=== PATIENT | female | born 1980 | race Caucasian/White ===

== ENCOUNTER 2023-07-02 19:22 | Observation (INO) ==
--- NOTE | 2023-07-02 20:13 | Emergency Department Note ---
Impression & Plan Acute hyperventilation syndrome, Hypophosphatemia, Hypokalemia, Low magnesium level, Numbness and tingling ED Provider Note NAME: NGUYỄN GARZON AGE: 42 SEX: F : 1980 ARRIVES VIA: Walk-In INFORMANT: Patient ED PROVIDER(S): Devon Root MD CHIEF COMPLAINT: Body numbness PLAN: Disposition: Admit MEDICAL DECISION MAKING: The patient is a pleasant 42-year-old woman with a past medical history of depression, anxiety who presents to emergency department via walk-in accompanied by her sister for evaluation of acute onset of dizziness, body numbness which she feels she is removed from her body began abruptly approximate 2 hours prior to arrival. The patient symptoms occur in the setting of visiting from [place] where she drove out to the area to attend her niece's graduation from [facility]. She reports she was feeling healthy prior to making the trip for the graduation ceremony. She was doing well earlier today and symptoms began after she ate lunch at [employer]. She reports the meal was unremarkable but her symptoms did begin after this. She denies any regular alcohol use or alcohol use today. She reports history of panic attacks and feels confident that this is unlike any panic attacks she has ever felt and does not feel this is related to this. She does admit to taking gabapentin which she is prescribed per her report for anxiety and not pain and takes as needed. She otherwise denies any preceding fevers, chills, cough congestion, GI or symptoms. On evaluation the patient is anxious distress, afebrile with blood pressure 140s/90s and stable vital signs. She appears clinically dry. She has no focal neurologic deficits. Reflexes within normal limits. There is no clonus. EKG without overt acute ischemia. CXR negative for acute cardiopulmonary process per my personal preliminary review/interpretation. WBC, H/H and platelets within normal limits. Chemistry without metabolic acidosis. Potassium 3.3, magnesium 1.8 and phosphorus critically low at 1.2 with IV and oral repletion initiated. LFTs unremarkable. High-sensitivity troponin is undetectable. Lipase normal. TSH is mildly elevated however free T4 within normal limits. hCG negative. Medical alcohol was undetectable. CT of the head and CT of the head and neck were performed were negative for acute abnormalities. Upon evaluation patient did feel substantially improved following IV hydration, IV magnesium, IV potassium and IV K-Phos as well as oral repletion. However, she still felt somewhat symptomatic and did not feel comfortable/safe for discharge given she is visiting from her home in [place]. Thus, given the patient's critically low phosphorus possibly related to component of hypoventilation syndrome with intracellular shifting as well as deficiency was referred to hospital service for further management. Case was discussed with Jordan Henry hospitalist who will evaluate the patient for admission. Further management per admitting team. Triage Nursing notes reviewed and agree them. Prior/external medical records reviewed Vital Signs: reviewed Differential diagnosis: Infection, dehydration, metabolic abnormality, hypo/hyperglycemia, electrolyte disturbance, anemia, hypoxia, cardiac sources, intracerebral event, toxicologic, neurologic, as well as other pathologies. ER treatment provided: See below. Diagnostics interpreted by me: ECG: Normal sinus rhythm, 82 bpm, no ectopy, no overt ST elevation or depression, QTc 462, QRS 94 Cardiac Monitoring: An order for continuous cardiac monitoring was placed and demonstrated Normal sinus rhythm, 82 bpm, no ectopy. Laboratory studies: See below Imaging studies: See below Consultation(s): Case was discussed with Jordan Henry hospitalist who will evaluate the patient for admission. HPI: The patient is a pleasant 42-year-old woman with a past medical history of depression, anxiety who presents to emergency department via walk-in accompanied by her sister for evaluation of acute onset of dizziness, body numbness which she feels she is removed from her body began abruptly approximate 2 hours prior to arrival. The patient symptoms occur in the setting of visiting from [place] where she drove out to the area to attend her niece's graduation from [facility]. She reports she was feeling healthy prior to making the trip for the graduation ceremony. She was doing well earlier today and symptoms began after she ate lunch at [employer]. She reports the meal was unremarkable but her symptoms did begin after this. She denies any regular alcohol use or alcohol use today. She reports history of panic attacks and feels confident that this is unlike any panic attacks she has ever felt and does not feel this is related to this. She does admit to taking gabapentin which she is prescribed per her report for anxiety and not pain and takes as needed. She otherwise denies any preceding fevers, chills, cough congestion, GI or symptoms. ROS: See above HPI for pertinent positives & negatives. A total of 10 systems reviewed and were otherwise negative. VITALS:See Below PHYSICAL EXAMINATION: GENERAL: Awake, alert, anxious-appearing, in no distress HENT: Normocephalic, atraumatic. Oropharynx with dry mucous membranes and otherwise unremarkable. EYES: Normal conjunctiva. Sclera non-icteric. EOMI. No nystamgus. PEARRL. NECK: Supple. No nuchal rigidity. FROM. No JVD. RESPIRATORY: Clear to auscultation. CARDIAC: Regular rate, normal rhythm. Extremities warm and well perfused. Pulses equal. ABDOMEN: Soft, non-distended. No tenderness to palpation. No rebound or guarding. No masses. MUSCULOSKELETAL: Chest examination reveals no tenderness. The back is symmetrical on inspection without obvious abnormality. There is no CVA tenderness to palpation. No joint edema. LOWER EXTREMITIES: Calves are equal size bilaterally and non-tender. No edema. No discoloration. NEURO: Normal sensorium. No sensory or motor deficits noted. 5/5 strength and SILT x 4 extremities. Cerebellar function intact including [id number], alternating palms, [id number]. DTRs wnl. No clonus. SKIN: No rash or jaundice noted. ED COURSE: PDMP: PDMP from [place] was reviewed and does show regular prescriptions for Adderall which is consistent with the patient's report where she is prescribed 50 mg extended release capsules and 5 mg tablets last filled on 06/06/2023. Gabapentin was last prescribed in September 2022. Critical Care: I have personally spent greater than 35 minutes of critical care time in the direct management of this patient. This includes bedside care, interpretation of diagnostic studies, and testing, discussion with consultants, patient, and family members, and other required patient management activities. This 35 minutes is in excess of all separately billable procedures. Devon Root MD Past Med/Surg History Medical History Panic attack Anxiety Depression Social History Smoking Status: Current every day smoker Tobacco Type: E-cigarettes / Vaping Preferred Language: Fijian Feels Safe at Home: Yes Allergies Allergies Allergy/AdvReac Type Severity Reaction Status Date / Time No Known Allergies Allergy Unverified 07/02/23 23:44 Home Meds Home Medications Medication Instructions Recorded Confirmed dextroamphetamine-amphetamine 5 mg 5 mg PO .DAILY IN AFTERNOON PRN as 07/02/23 07/02/23 tablet directed dextroamphetamine-amphetamine ER 15 mg PO DAILY 07/02/23 07/02/23 15 mg 24hr capsule,extend release gabapentin 300 mg capsule 300 mg PO TID PRN Anxiety 07/02/23 07/02/23 lumateperone 21 mg capsule 21 mg PO DAILY 07/02/23 07/02/23 (Caplyta) venlafaxine 150 mg 150 mg PO DAILY 07/02/23 07/02/23 capsule,extended release 24 hr Results & Data (ED) Vital Signs Vital Signs - 24 hr 07/02/23 19:23 07/02/23 19:57 07/02/23 19:58 Temperature 36.6 C Temperature Source Temporal Artery Scan Pulse Rate 95 H 89 Pulse Rate [Apical] 90 Pulse Rhythm Regular Pulse Rhythm [Apical] Regular Pulse Strength Normal Pulse Strength [Apical] Normal Respiratory Rate 18 19 Respiratory Effort / Characteristics Non-Labored Spontaneous Non-Labored Spontaneous Respiratory Depth Normal Normal Respiratory Pattern Regular Regular Blood Pressure 133/93 Blood Pressure [Right Arm] 143/97 H Blood Pressure Mean 106 Blood Pressure Mean [Right Arm] 112 Blood Pressure Position Sitting Pulse Oximetry 99 100 Oxygen Delivery Method Room Air Room Air Sepsis Recent Fever Within 48 Hours No Sepsis New/Unexplained Change in Mental Status N/A Sepsis Action Taken by Nursing No Action Required 07/02/23 20:08 07/02/23 21:22 07/02/23 23:00 Temperature Temperature Source Pulse Rate 83 Pulse Rate [Apical] 82 85 Pulse Rhythm Regular Pulse Rhythm [Apical] Regular Pulse Strength Pulse Strength [Apical] Normal Respiratory Rate 19 18 18 Respiratory Effort / Characteristics Non-Labored Spontaneous Non-Labored Spontaneous Respiratory Depth Normal Normal Respiratory Pattern Regular Regular Blood Pressure Blood Pressure [Right Arm] 132/93 132/93 Blood Pressure Mean Blood Pressure Mean [Right Arm] 106 106 Blood Pressure Position Pulse Oximetry 97 98 98 Oxygen Delivery Method Room Air Room Air Room Air Sepsis Recent Fever Within 48 Hours Sepsis New/Unexplained Change in Mental Status Sepsis Action Taken by Nursing 07/02/23 23:58 Temperature Temperature Source Pulse Rate 88 Pulse Rate [Apical] Pulse Rhythm Pulse Rhythm [Apical] Pulse Strength Pulse Strength [Apical] Respiratory Rate Respiratory Effort / Characteristics Respiratory Depth Respiratory Pattern Blood Pressure Blood Pressure [Right Arm] Blood Pressure Mean Blood Pressure Mean [Right Arm] Blood Pressure Position Pulse Oximetry Oxygen Delivery Method Sepsis Recent Fever Within 48 Hours Sepsis New/Unexplained Change in Mental Status Sepsis Action Taken by Nursing Laboratory Data Attestation: I reviewed the patient's lab results. 07/02/23 20:20 07/02/23 20:20 Lab Results 07/02/23 Range/Units 20:20 WBC 7.44 (4.8-10.8) K/ul RBC 4.34 (4.20-5.40) M/uL Hgb 13.5 (12.0-16.0) g/dl Hct 38.5 (37.0-47.0) % MCV 88.7 (80.0-100.0) fL MCH 31.1 (25.0-34.0) pg MCHC 35.1 (32.0-36.0) g/dL RDW Std Deviation 42.6 (36.4-46.3) fL RDW Coeff of Geeta 13.1 (11.5-14.5) % Plt Count 390 (130-400) K/uL MPV 10.3 (9.4-12.4) fL Immature Gran % (Auto) 0.1 % Neut % (Auto) 61.8 % Lymph % (Auto) 24.6 % [place] % (Auto) 6.7 % Eos % (Auto) 5.6 % Baso % (Auto) 1.2 % Neut # (Auto) 4.59 (1.40-6.50) K/uL Lymph # (Auto) 1.83 (1.20-3.40) K/uL [place] # (Auto) 0.50 (0.11-0.59) K/uL Eos # (Auto) 0.42 (0.00-0.50) K/uL Baso # (Auto) 0.09 (0.00-0.20) K/uL Immature Gran # (Auto) 0.01 (0.01-0.20) K/uL PT 11.0 (9.0-12.0) Seconds INR 1.0 (0.9-1.1) Sodium 138 (136-145) mmol/L Potassium 3.3 L (3.5-5.1) mmol/L Chloride 102 (98-107) mmol/L Carbon Dioxide 27 (21-32) mmol/L Anion Gap 9 (3-11) BUN 10 (6-23) mg/dl Creatinine 0.70 (0.6-1.2) mg/dl Est Cr Clr Drug Dosing Not Reportable Est GFR ( Amer) 123.9 ml/min Est GFR (Non-Af Amer) 106.9 ml/min BUN/Creatinine Ratio 14.3 (10-20) Glucose 101 H (70-99(Fasting)) mg/dl Calcium 9.1 (8.6-10.3) mg/dl Phosphorus 1.2 L* (2.5-4.9) mg/dl Magnesium 1.8 (1.7-2.4) mg/dl Total Bilirubin 0.4 (0.2-1.0) mg/dl AST 24 (13-39) U/L ALT 28 (7-52) U/L Alkaline Phosphatase 102 (34-104) U/L Troponin I High Sens < 2.3 (0-14) pg/ml Total Protein 7.4 (6.0-8.3) gm/dl Albumin 4.4 (3.4-5.0) gm/dl Globulin 3.0 (2.5-4.0) gm/dl Albumin/Globulin Ratio 1.5 (0.9-2) Lipase 22 (11-82) U/L TSH 5.872 H (0.300-4.500) uIu/ml Free T4 0.76 (0.61-1.60) ng/dl HCG, Qual Negative (Negative) Ethyl Alcohol mg/dL < 10.0 (<10.0) mg/dl Administered Medications Discontinued Medications Sodium Chloride (Nss) 1,000 mls @ 999 mls/hr IV .Q1H1M ONE Stop: 07/02/23 21:10 Last Infusion: 07/02/23 23:07 Dose: Infused Documented By: Admin: 07/02/23 20:19 Dose: 999 mls/hr Documented By: GERA Magnesium Sulfate/Dextrose (Magnesium Sulfate / D5w) 1 gm in 100 mls @ 100 mls/hr IV NOW STA Stop: 07/02/23 22:07 Last Infusion: 07/02/23 22:50 Dose: Infused Documented By: Admin: 07/02/23 21:37 Dose: 100 mls/hr Documented By: YOLIE Potassium Phosphate 9 mmol/ (Sodium Chloride) 253 mls @ 170 mls/hr IV ONE ONE Stop: 07/02/23 23:29 Last Infusion: 07/02/23 23:56 Dose: Infused Documented By: Admin: 07/02/23 22:22 Dose: 170 mls/hr Documented By: YOLIE Sodium Chloride (Nss) 1,000 mls @ 999 mls/hr IV .Q1H1M ONE Stop: 07/03/23 00:06 Last Infusion: 07/03/23 01:35 Dose: Infused Documented By: Admin: 07/02/23 23:56 Dose: 999 mls/hr Documented By: SHAYNE Potassium Phosphate 9 mmol/ (Sodium Chloride) 253 mls @ 170 mls/hr IV ONE ONE Stop: 07/03/23 01:29 Last Infusion: 07/03/23 01:35 Dose: Infused Documented By: Admin: 07/02/23 23:55 Dose: 170 mls/hr Documented By: SHAYNE Potassium Phosphate 9 mmol/ (Sodium Chloride) 253 mls @ 170 mls/hr IV ONE ONE Stop: 07/03/23 02:59 Last Infusion: 07/03/23 03:42 Dose: Infused Documented By: Admin: 07/03/23 01:47 Dose: 170 mls/hr Documented By: DANA Ioversol (Optiray 320 125ml) 120 ml IV ONCE ONE Stop: 07/02/23 21:36 Last Admin: 07/02/23 21:35 Dose: 120 ml Documented By: STACEY Lorazepam (Lorazepam 1 Mg Tab) 1 mg PO NOW STA Stop: 07/02/23 20:11 Last Admin: 07/02/23 20:19 Dose: 1 mg Documented By: GERA Miscellaneous (Patient's Height &/Or Weight Needed) 1 each N/A Q2H ALEKS Stop: 08/01/23 21:29 Last Admin: 07/02/23 22:39 Dose: Not Given Documented By: Admin: 07/02/23 21:44 Dose: 1 each Documented By: YOLIE Potassium Chloride (Potassium Chloride Crtab 20 Meq Tabcr) 40 meq PO NOW STA Stop: 07/02/23 21:08 Last Admin: 07/02/23 21:37 Dose: 40 meq Documented By: KMO Potassium Phosphate (Potassium Phos 3 Mmol/1 Ml Infusion) 9 mmol IV NOW STA Stop: 07/02/23 21:06 Last Admin: 07/02/23 22:25 Dose: Not Given Documented By: KMO Potassium Phosphate (Pot Phosphate Monobasic W/ Sod Tab) 2 tab PO NOW STA Stop: 07/02/23 21:06 Last Admin: 07/02/23 21:37 Dose: 2 tab Documented By: KMO Potassium Phosphate (Potassium Phos 3 Mmol/1 Ml Infusion) 9 mmol IV NOW STA Stop: 07/02/23 23:07 Last Admin: 07/02/23 23:28 Dose: Not Given Documented By: [facility] Imaging Data Radiologist's Impression: Head CT 07/02/23 20:08 Exam(s): CT HEAD Without Contrast EXAM: CT Head Without Intravenous Contrast CLINICAL HISTORY: Dizziness. TECHNIQUE: Axial computed tomography images of the head/brain without intravenous contrast. CTDI is 38 mGy and DLP is 546 mGy-cm. Automated exposure control was utilized for the study. A dose lowering technique was utilized adhering to the principles of ALARA. COMPARISON: No relevant prior studies available. FINDINGS: Brain: Unremarkable. No significant white matter disease. No intracranial hemorrhage, mass-effect or midline shift. No abnormal extra axial fluid. No evidence of acute infarct. Ventricles: Unremarkable. No ventriculomegaly. Bones/joints: Unremarkable. No acute fracture. Soft tissues: Unremarkable. Sinuses: Unremarkable as visualized. No acute sinusitis. Mastoid air cells: Unremarkable as visualized. No mastoid effusion. IMPRESSION: No acute intracranial finding. Electronically signed by: Annette Black MD 07/02/23 22:08 PM Head CTA 07/02/23 20:08 Exam(s): CTA HEAD With Contrast IV Amt: 120ml optiray 320 EXAM: CT Angiography Head With Intravenous Contrast CLINICAL HISTORY: Dizzy. TECHNIQUE: Axial computed tomographic angiography images of the head with intravenous contrast. 3D and MIPS images were created and reviewed. CTDI is 16 mGy and DLP is 971 mGy-cm. Automated exposure control was utilized for the study. A dose lowering technique was utilized adhering to the principles of ALARA. MIP reconstructed images were created and reviewed. CONTRAST: Patient received 120ml optiray 320 of IV contrast COMPARISON: No relevant prior studies available. FINDINGS: Right internal carotid artery: No acute findings. Intracranial segment is patent with no significant stenosis. No aneurysm. Right anterior cerebral artery: Unremarkable. No occlusion or significant stenosis. No aneurysm. Right middle cerebral artery: Unremarkable. No occlusion or significant stenosis. No aneurysm. Right posterior cerebral artery: Unremarkable. No occlusion or significant stenosis. No aneurysm. Right vertebral artery: Unremarkable as visualized. Left internal carotid artery: No acute findings. Intracranial segment is patent with no significant stenosis. No aneurysm. Left anterior cerebral artery: Unremarkable. No occlusion or significant stenosis. No aneurysm. Left middle cerebral artery: Unremarkable. No occlusion or significant stenosis. No aneurysm. Left posterior cerebral artery: Unremarkable. No occlusion or significant stenosis. No aneurysm. Left vertebral artery: Unremarkable as visualized. Basilar artery: Unremarkable. No occlusion or significant stenosis. No aneurysm. IMPRESSION: No acute finding of the arteries of the head. Electronically signed by: Annette Black MD 07/02/23 22:04 PM Neck CTA 07/02/23 20:08 Exam(s): CTA NECK With Contrast IV Amt: 120ml optiray 320 EXAM: CT Angiography Neck With Intravenous Contrast CLINICAL HISTORY: Dizziness. TECHNIQUE: Routine carotid CT angiography protocol was performed with intravenous contrast. NASCET criteria using the distal ICAs for comparison were used for evaluation of stenoses. MIPS images were created and reviewed. CTDI is 16 mGy and DLP is 971 mGy-cm. Automated exposure control was utilized for the study. A dose lowering technique was utilized adhering to the principles of ALARA. MIP reconstructed images were created and reviewed. CONTRAST: Patient received 120ml optiray 320 of IV contrast COMPARISON: None. FINDINGS: VASCULATURE: Right common carotid artery: Unremarkable. No occlusion or significant stenosis. No dissection. Right internal carotid artery: Unremarkable. Extracranial segment is patent with no occlusion or significant stenosis. No dissection. Right external carotid artery: Unremarkable. No occlusion. Right vertebral artery: Unremarkable. No occlusion or significant stenosis. No dissection. Left common carotid artery: Unremarkable. No occlusion or significant stenosis. No dissection. Left internal carotid artery: Unremarkable. Extracranial segment is patent with no occlusion or significant stenosis. No dissection. Left external carotid artery: Unremarkable. No occlusion. Left vertebral artery: Unremarkable. No occlusion or significant stenosis. No dissection. NECK: Bones/joints: Unremarkable. No acute fracture. Soft tissues: Unremarkable. Lung apices: Clear. CAROTID STENOSIS REFERENCE USING NASCET CRITERIA: % ICA stenosis = (1 - narrowest ICA diameter/diameter of distal cervical ICA) x 100. Mild - <50% stenosis. Moderate - 50-69% stenosis. Severe - 70-94% stenosis. Near occlusion - 95-99% stenosis. Occluded - 100% stenosis. IMPRESSION: No acute finding of the arteries of the neck. Electronically signed by: Annette Black MD 07/02/23 22:05 PM Discharge Plan Visit Data Chief Complaint: Illness Stated Complaint: ILLNESS ED Provider: Devon Root Discharge Problem: Acute hyperventilation syndrome, Hypophosphatemia, Hypokalemia, Low magnesium level, Numbness and tingling Discharge Instructions Interventions: ED Discharge Assessment Last Done: 07/03/23 01:05
[2023-07-02] MEDS: LORazepam 1 MG TAB PO STA (20:19)
[2023-07-02] MEDS: SODIUM CHLORIDE 0.9% 1,000 ML IV ONE ×2 (20:19→23:56)
[2023-07-02 20:44] LABS: Basophils # (auto) 0.09 K/uL (0.00-0.20); Basophils % (auto) 1.2 %; Eosinophils # (auto) 0.42 K/uL (0.00-0.50); Eosinophils % (auto) 5.6 %; Hematocrit (blood only) 38.5 % (37.0-47.0); Hemoglobin 13.5 g/dl (12.0-16.0); Immature Granulocytes # (auto) 0.01 K/uL (0.01-0.20); Immature Granulocytes % (auto) 0.1 %; Lymphocytes # (auto) 1.83 K/uL (1.20-3.40); Lymphocytes % (auto) 24.6 %; Mean Corpuscular Hemoglobin 31.1 pg (25.0-34.0); Mean Corpuscular Hgb Conc 35.1 g/dL (32.0-36.0); Mean Corpuscular Volume 88.7 fL (80.0-100.0); Mean Platelet Volume 10.3 fL (9.4-12.4); Monocytes % (auto) 6.7 %; Neutrophils # (auto) 4.59 K/uL (1.40-6.50); Neutrophils % (auto) 61.8 %; Platelet Count 390 K/uL (130-400); RDW Coefficient of Variation 13.1 % (11.5-14.5); RDW Standard Deviation 42.6 fL (36.4-46.3); Red Blood Count 4.34 M/uL (4.20-5.40); White Blood Count 7.44 K/ul (4.8-10.8)
[2023-07-02 20:58] LABS: Pregnancy Test, Serum Negative (Negative)
[2023-07-02 21:02] LABS: Anion Gap 9 (3-11); BUN Creatinine Ratio 14.3 (10-20); Blood Urea Nitrogen 10 mg/dl (6-23); Calcium 9.1 mg/dl (8.6-10.3); Carbon Dioxide 27 mmol/L (21-32); Chloride 102 mmol/L (98-107); Est GFR (African American) 123.9 ml/min; Est GFR (Non-African American) 106.9 ml/min; Glucose 101 mg/dl (70-99(Fasting)); Potassium 3.3 mmol/L (3.5-5.1); Sodium 138 mmol/L (136-145)
[2023-07-02 21:05] LABS: Alanine Aminotransferase 28 U/L (7-52); Albumin Globulin Ratio 1.5 (0.9-2); Albumin Level 4.4 gm/dl (3.4-5.0); Alkaline Phosphatase 102 U/L (34-104); Aspartate Aminotransferase 24 U/L (13-39); Bilirubin,Total 0.4 mg/dl (0.2-1.0); Lipase 22 U/L (11-82); Magnesium 1.8 mg/dl (1.7-2.4); Phosphorus 1.2 mg/dl (2.5-4.9); Total Protein 7.4 gm/dl (6.0-8.3)
[2023-07-02 21:09] LABS: Troponin I High Sensitivity < 2.3 pg/ml (0-14)
[2023-07-02 21:18] LABS: Thyroid Stimulating Hormone 5.872 uIu/ml (0.300-4.500)
[2023-07-02] MEDS: OPTIRAY 320 125ml IV ONE (21:35)
[2023-07-02] MEDS: POT PHOSPHATE MONOBASIC W/ SOD TAB PO STA (21:37)
[2023-07-02] MEDS: MAGNESIUM SULFATE / D5W 1 GM/100 ML BAG IV STA (21:37)
[2023-07-02] MEDS: POTASSIUM CHLORIDE CRTAB 20 MEQ TABCR PO STA (21:37)
[2023-07-02] MEDS: Patient's HEIGHT &/or WEIGHT Needed SCH (21:44)
[2023-07-02 21:54] LABS: T4 Free Thyroxine 0.76 ng/dl (0.61-1.60)
--- NOTE | 2023-07-02 22:05 | CT Scan Report ---
Exam(s): CTA HEAD With Contrast IV Amt: 120ml optiray 320 EXAM: CT Angiography Head With Intravenous Contrast CLINICAL HISTORY: Dizzy. TECHNIQUE: Axial computed tomographic angiography images of the head with intravenous contrast. 3D and MIPS images were created and reviewed. CTDI is 16 mGy and DLP is 971 mGy-cm. Automated exposure control was utilized for the study. A dose lowering technique was utilized adhering to the principles of ALARA. MIP reconstructed images were created and reviewed. CONTRAST: Patient received 120ml optiray 320 of IV contrast COMPARISON: No relevant prior studies available. FINDINGS: Right internal carotid artery: No acute findings. Intracranial segment is patent with no significant stenosis. No aneurysm. Right anterior cerebral artery: Unremarkable. No occlusion or significant stenosis. No aneurysm. Right middle cerebral artery: Unremarkable. No occlusion or significant stenosis. No aneurysm. Right posterior cerebral artery: Unremarkable. No occlusion or significant stenosis. No aneurysm. Right vertebral artery: Unremarkable as visualized. Left internal carotid artery: No acute findings. Intracranial segment is patent with no significant stenosis. No aneurysm. Left anterior cerebral artery: Unremarkable. No occlusion or significant stenosis. No aneurysm. Left middle cerebral artery: Unremarkable. No occlusion or significant stenosis. No aneurysm. Left posterior cerebral artery: Unremarkable. No occlusion or significant stenosis. No aneurysm. Left vertebral artery: Unremarkable as visualized. Basilar artery: Unremarkable. No occlusion or significant stenosis. No aneurysm. IMPRESSION: No acute finding of the arteries of the head. Electronically signed by: Annette Black MD 07/02/23 22:04 PM
--- NOTE | 2023-07-02 22:06 | CT Scan Report ---
Exam(s): CTA NECK With Contrast IV Amt: 120ml optiray 320 EXAM: CT Angiography Neck With Intravenous Contrast CLINICAL HISTORY: Dizziness. TECHNIQUE: Routine carotid CT angiography protocol was performed with intravenous contrast. NASCET criteria using the distal ICAs for comparison were used for evaluation of stenoses. MIPS images were created and reviewed. CTDI is 16 mGy and DLP is 971 mGy-cm. Automated exposure control was utilized for the study. A dose lowering technique was utilized adhering to the principles of ALARA. MIP reconstructed images were created and reviewed. CONTRAST: Patient received 120ml optiray 320 of IV contrast COMPARISON: None. FINDINGS: VASCULATURE: Right common carotid artery: Unremarkable. No occlusion or significant stenosis. No dissection. Right internal carotid artery: Unremarkable. Extracranial segment is patent with no occlusion or significant stenosis. No dissection. Right external carotid artery: Unremarkable. No occlusion. Right vertebral artery: Unremarkable. No occlusion or significant stenosis. No dissection. Left common carotid artery: Unremarkable. No occlusion or significant stenosis. No dissection. Left internal carotid artery: Unremarkable. Extracranial segment is patent with no occlusion or significant stenosis. No dissection. Left external carotid artery: Unremarkable. No occlusion. Left vertebral artery: Unremarkable. No occlusion or significant stenosis. No dissection. NECK: Bones/joints: Unremarkable. No acute fracture. Soft tissues: Unremarkable. Lung apices: Clear. CAROTID STENOSIS REFERENCE USING NASCET CRITERIA: % ICA stenosis = (1 - narrowest ICA diameter/diameter of distal cervical ICA) x 100. Mild - <50% stenosis. Moderate - 50-69% stenosis. Severe - 70-94% stenosis. Near occlusion - 95-99% stenosis. Occluded - 100% stenosis. IMPRESSION: No acute finding of the arteries of the neck. Electronically signed by: Annette Black MD 07/02/23 22:05 PM
--- NOTE | 2023-07-02 22:09 | CT Scan Report ---
Exam(s): CT HEAD Without Contrast EXAM: CT Head Without Intravenous Contrast CLINICAL HISTORY: Dizziness. TECHNIQUE: Axial computed tomography images of the head/brain without intravenous contrast. CTDI is 38 mGy and DLP is 546 mGy-cm. Automated exposure control was utilized for the study. A dose lowering technique was utilized adhering to the principles of ALARA. COMPARISON: No relevant prior studies available. FINDINGS: Brain: Unremarkable. No significant white matter disease. No intracranial hemorrhage, mass-effect or midline shift. No abnormal extra axial fluid. No evidence of acute infarct. Ventricles: Unremarkable. No ventriculomegaly. Bones/joints: Unremarkable. No acute fracture. Soft tissues: Unremarkable. Sinuses: Unremarkable as visualized. No acute sinusitis. Mastoid air cells: Unremarkable as visualized. No mastoid effusion. IMPRESSION: No acute intracranial finding. Electronically signed by: Annette Black MD 07/02/23 22:08 PM
[2023-07-02] MEDS: POTASSIUM PHOSPHATE 9 MMOL in SODIUM CHLORIDE 0.9% 250 ML IV ONE ×2 (22:22→23:55)
[2023-07-02] MEDS: POTASSIUM PHOS 3 MMOL/1 ML INFUSION IV STA ×2 (22:25→23:28)
--- NOTE | 2023-07-03 00:17 | History & Physical Report ---
Date of Service July 03, 2023 Assessment & Plan (1) Headache: Plan: Associated with photophobia, transient tingling and numbness Possible migraine Patient currently comfortable. Lack of sleep, anxiety, multiple electrolyte abnormalities (hypokalemia, hypophosphatemia) possibly contributory to symptoms ADHD, mood disorder, stable on current regimen as per patient Medical telemetry NSAID trial if with headache recurrence Replace electrolytes Anxiolytic as needed DVT prophylaxis. [facility] subcu Full code Text document was generated using [employer] voice recognition software. It may contain grammatical or spelling errors. Kindly contact undersigned for clarification of any documentation item in question. History of Present Illness Chief Complaint: Dizziness, body numbness Primary Care Provider: NO PCP History obtained from patient and records. Medical history significant for ADHD, anxiety/mood disorder, ongoing vape use. Patient is a resident of [place], [place] who arrived in town today to attend graduation of her niece. Patient did not get a lot of sleep last night. Patient was sitting down at her niece's apartment when she experienced sudden onset of headache, dizziness, and body numbness feeling like she is removed from her body. Subsequent light sensitivity. No prior episodes. No chest pain, no SOB, some nausea, no vomiting. No abdominal pain. No unusual stress at home. Patient brought to ER for evaluation. Medical History as above Surgical History : Rectal surgery Family History : Hypertension Personal/Social history : Ongoing vape use, occasional EtOH intake, homemaker Allergies Allergy/AdvReac Type Severity Reaction Status Date / Time No Known Allergies Allergy Unverified 07/02/23 23:44 Home Medications Medication Instructions Recorded Confirmed Type dextroamphetamine-amphetamine 5 mg 5 mg PO .DAILY IN AFTERNOON PRN as 07/02/23 07/02/23 History tablet directed dextroamphetamine-amphetamine ER 15 mg PO DAILY 07/02/23 07/02/23 History 15 mg 24hr capsule,extend release gabapentin 300 mg capsule 300 mg PO TID PRN Anxiety 07/02/23 07/02/23 History lumateperone 21 mg capsule 21 mg PO DAILY 07/02/23 07/02/23 History (Caplyta) venlafaxine 150 mg 150 mg PO DAILY 07/02/23 07/02/23 History capsule,extended release 24 hr Past Med/Surg History Medical History Panic attack Anxiety Depression Social History Smoking Status: Current every day smoker Tobacco Type: E-cigarettes / Vaping Preferred Language: Lao Feels Safe at Home: Yes Review of Systems Review of Systems: As per HPI, all other systems reviewed and negative Physical Exam Physical Exam: GENERAL: Comfortable, wane, pleasant, no respiratory distress SKIN: Normal color, warm HEENT: [place] palpebral conjunctivae, no ptosis, dry buccal mucosa NECK : Supple, no tenderness CHEST : CTA, no tenderness HEART : RRR, no obvious murmurs ABDOMEN: Some distention, nontender EXTREMITIES : No LE swelling/tenderness, no other conspicuous deformities noted NEUROLOGIC : Coherent, no facial asymmetry, no other gross focality Results & Data Results & Data Vital Signs (Past 12 Hours) Vital Signs Temp Pulse Pulse Resp BP BP Pulse Ox 07/02/23 23:58 88 07/02/23 23:00 85 18 132/93 98 07/02/23 21:22 82 18 132/93 98 07/02/23 20:08 83 19 97 07/02/23 19:58 90 19 143/97 H 100 07/02/23 19:57 89 07/02/23 19:23 36.6 C 95 H 18 133/93 99 O2 Del Method 07/02/23 23:58 07/02/23 23:00 Room Air 07/02/23 21:22 Room Air 07/02/23 20:08 Room Air 07/02/23 19:58 Room Air 07/02/23 19:57 07/02/23 19:23 Room Air Laboratory Results Laboratory Results WBC 7.44 K/ul (4.8-10.8) 07/02/23 20:20 RBC 4.34 M/uL (4.20-5.40) 07/02/23 20:20 Hgb 13.5 g/dl (12.0-16.0) 07/02/23 20:20 Hct 38.5 % (37.0-47.0) 07/02/23 20:20 MCV 88.7 fL (80.0-100.0) 07/02/23 20:20 MCH 31.1 pg (25.0-34.0) 07/02/23 20:20 MCHC 35.1 g/dL (32.0-36.0) 07/02/23 20:20 RDW Std Deviation 42.6 fL (36.4-46.3) 07/02/23 20:20 RDW Coeff of Geeta 13.1 % (11.5-14.5) 07/02/23 20:20 Plt Count 390 K/uL (130-400) 07/02/23 20:20 MPV 10.3 fL (9.4-12.4) 07/02/23 20:20 Immature Gran % (Auto) 0.1 % 07/02/23 20:20 Neut % (Auto) 61.8 % 07/02/23 20:20 Lymph % (Auto) 24.6 % 07/02/23 20:20 Crockett % (Auto) 6.7 % 07/02/23 20:20 Eos % (Auto) 5.6 % 07/02/23 20:20 Baso % (Auto) 1.2 % 07/02/23 20:20 Neut # (Auto) 4.59 K/uL (1.40-6.50) 07/02/23 20:20 Lymph # (Auto) 1.83 K/uL (1.20-3.40) 07/02/23 20:20 Crockett # (Auto) 0.50 K/uL (0.11-0.59) 07/02/23 20:20 Eos # (Auto) 0.42 K/uL (0.00-0.50) 07/02/23 20:20 Baso # (Auto) 0.09 K/uL (0.00-0.20) 07/02/23 20:20 Immature Gran # (Auto) 0.01 K/uL (0.01-0.20) 07/02/23 20:20 PT 11.0 Seconds (9.0-12.0) 07/02/23 20:20 INR 1.0 (0.9-1.1) 07/02/23 20:20 Sodium 138 mmol/L (136-145) 07/02/23 20:20 Potassium 3.3 mmol/L (3.5-5.1) L 07/02/23 20:20 Chloride 102 mmol/L (98-107) 07/02/23 20:20 Carbon Dioxide 27 mmol/L (21-32) 07/02/23 20:20 Anion Gap 9 (3-11) 07/02/23 20:20 BUN 10 mg/dl (6-23) 07/02/23 20:20 Creatinine 0.70 mg/dl (0.6-1.2) 07/02/23 20:20 Est Cr Clr Drug Dosing Not Reportable 07/02/23 20:20 Est GFR ( Amer) 123.9 ml/min 07/02/23 20:20 Est GFR (Non-Af Amer) 106.9 ml/min 07/02/23 20:20 BUN/Creatinine Ratio 14.3 (10-20) 07/02/23 20:20 Glucose 101 mg/dl (70-99(Fasting)) H 07/02/23 20:20 Calcium 9.1 mg/dl (8.6-10.3) 07/02/23 20:20 Phosphorus 1.2 mg/dl (2.5-4.9) L* 07/02/23 20:20 Magnesium 1.8 mg/dl (1.7-2.4) 07/02/23 20:20 Total Bilirubin 0.4 mg/dl (0.2-1.0) 07/02/23 20:20 AST 24 U/L (13-39) 07/02/23 20:20 ALT 28 U/L (7-52) 07/02/23 20:20 Alkaline Phosphatase 102 U/L (34-104) 07/02/23 20:20 Troponin I High Sens < 2.3 pg/ml (0-14) 07/02/23 20:20 Total Protein 7.4 gm/dl (6.0-8.3) 07/02/23 20:20 Albumin 4.4 gm/dl (3.4-5.0) 07/02/23 20:20 Globulin 3.0 gm/dl (2.5-4.0) 07/02/23 20:20 Albumin/Globulin Ratio 1.5 (0.9-2) 07/02/23 20:20 Lipase 22 U/L (11-82) 07/02/23 20:20 TSH 5.872 uIu/ml (0.300-4.500) H 07/02/23 20:20 Free T4 0.76 ng/dl (0.61-1.60) 07/02/23 20:20 HCG, Qual Negative (Negative) 07/02/23 20:20 Ethyl Alcohol mg/dL < 10.0 mg/dl (<10.0) 07/02/23 20:[address] 07/02/23 20:08 Exam(s): CT HEAD Without Contrast EXAM: CT Head Without Intravenous Contrast CLINICAL HISTORY: Dizziness. TECHNIQUE: Axial computed tomography images of the head/brain without intravenous contrast. CTDI is 38 mGy and DLP is 546 mGy-cm. Automated exposure control was utilized for the study. A dose lowering technique was utilized adhering to the principles of ALARA. COMPARISON: No relevant prior studies available. FINDINGS: Brain: Unremarkable. No significant white matter disease. No intracranial hemorrhage, mass-effect or midline shift. No abnormal extra axial fluid. No evidence of acute infarct. Ventricles: Unremarkable. No ventriculomegaly. Bones/joints: Unremarkable. No acute fracture. Soft tissues: Unremarkable. Sinuses: Unremarkable as visualized. No acute sinusitis. Mastoid air cells: Unremarkable as visualized. No mastoid effusion. IMPRESSION: No acute intracranial finding. Electronically signed by: Annette Black MD 07/02/23 22:08 PM Head CTA 07/02/23 20:08 Exam(s): CTA HEAD With Contrast IV Amt: 120ml optiray 320 EXAM: CT Angiography Head With Intravenous Contrast CLINICAL HISTORY: Dizzy. TECHNIQUE: Axial computed tomographic angiography images of the head with intravenous contrast. 3D and MIPS images were created and reviewed. CTDI is 16 mGy and DLP is 971 mGy-cm. Automated exposure control was utilized for the study. A dose lowering technique was utilized adhering to the principles of ALARA. MIP reconstructed images were created and reviewed. CONTRAST: Patient received 120ml optiray 320 of IV contrast COMPARISON: No relevant prior studies available. FINDINGS: Right internal carotid artery: No acute findings. Intracranial segment is patent with no significant stenosis. No aneurysm. Right anterior cerebral artery: Unremarkable. No occlusion or significant stenosis. No aneurysm. Right middle cerebral artery: Unremarkable. No occlusion or significant stenosis. No aneurysm. Right posterior cerebral artery: Unremarkable. No occlusion or significant stenosis. No aneurysm. Right vertebral artery: Unremarkable as visualized. Left internal carotid artery: No acute findings. Intracranial segment is patent with no significant stenosis. No aneurysm. Left anterior cerebral artery: Unremarkable. No occlusion or significant stenosis. No aneurysm. Left middle cerebral artery: Unremarkable. No occlusion or significant stenosis. No aneurysm. Left posterior cerebral artery: Unremarkable. No occlusion or significant stenosis. No aneurysm. Left vertebral artery: Unremarkable as visualized. Basilar artery: Unremarkable. No occlusion or significant stenosis. No aneurysm. IMPRESSION: No acute finding of the arteries of the head. Electronically signed by: Annette Black MD 07/02/23 22:04 PM Neck CTA 07/02/23 20:08 Exam(s): CTA NECK With Contrast IV Amt: 120ml optiray 320 EXAM: CT Angiography Neck With Intravenous Contrast CLINICAL HISTORY: Dizziness. TECHNIQUE: Routine carotid CT angiography protocol was performed with intravenous contrast. NASCET criteria using the distal ICAs for comparison were used for evaluation of stenoses. MIPS images were created and reviewed. CTDI is 16 mGy and DLP is 971 mGy-cm. Automated exposure control was utilized for the study. A dose lowering technique was utilized adhering to the principles of ALARA. MIP reconstructed images were created and reviewed. CONTRAST: Patient received 120ml optiray 320 of IV contrast COMPARISON: None. FINDINGS: VASCULATURE: Right common carotid artery: Unremarkable. No occlusion or significant stenosis. No dissection. Right internal carotid artery: Unremarkable. Extracranial segment is patent with no occlusion or significant stenosis. No dissection. Right external carotid artery: Unremarkable. No occlusion. Right vertebral artery: Unremarkable. No occlusion or significant stenosis. No dissection. Left common carotid artery: Unremarkable. No occlusion or significant stenosis. No dissection. Left internal carotid artery: Unremarkable. Extracranial segment is patent with no occlusion or significant stenosis. No dissection. Left external carotid artery: Unremarkable. No occlusion. Left vertebral artery: Unremarkable. No occlusion or significant stenosis. No dissection. NECK: Bones/joints: Unremarkable. No acute fracture. Soft tissues: Unremarkable. Lung apices: Clear. CAROTID STENOSIS REFERENCE USING NASCET CRITERIA: % ICA stenosis = (1 - narrowest ICA diameter/diameter of distal cervical ICA) x 100. Mild - <50% stenosis. Moderate - 50-69% stenosis. Severe - 70-94% stenosis. Near occlusion - 95-99% stenosis. Occluded - 100% stenosis. IMPRESSION: No acute finding of the arteries of the neck. Electronically signed by: Annette Black MD 07/02/23 22:05 PM Diagnostic Findings EKG as per my interpretation : Rate 80, NSR, normal axis, T wave abnormalities septal leads
[2023-07-03] MEDS ORDERED: PROMETHAZINE HCL 6.25 MG in SODIUM CHLORIDE 0.9% 50 ML IV PRN (00:19)
[2023-07-03] MEDS ORDERED: LORazepam 0.5 MG TAB PO PRN (00:19)
[2023-07-03] MEDS ORDERED: IBUPROFEN 200 MG TAB PO PRN (00:19)
[2023-07-03] MEDS ORDERED: ACETAMINOPHEN 325 MG TAB PO PRN (00:19)
[2023-07-03] MEDS ORDERED: KETOROLAC TROMETHAMINE 15 MG/ML VIAL IV PRN (00:19)
[2023-07-03] MEDS ORDERED: POTASSIUM PHOS 3 MMOL/1 ML INFUSION IV STA (00:22)
[2023-07-03] MEDS ORDERED: GABAPENTIN 300 MG CAP PO PRN (01:05)
[2023-07-03] MEDS: POTASSIUM PHOSPHATE 9 MMOL in SODIUM CHLORIDE 0.9% 250 ML IV ONE (01:47)
[2023-07-03 04:47] LABS: Basophils # (auto) 0.08 K/uL (0.00-0.20); Basophils % (auto) 1.5 %; Eosinophils # (auto) 0.46 K/uL (0.00-0.50); Eosinophils % (auto) 8.9 %; Immature Granulocytes # (auto) 0.02 K/uL (0.01-0.20); Immature Granulocytes % (auto) 0.4 %; Lymphocytes # (auto) 1.23 K/uL (1.20-3.40); Lymphocytes % (auto) 23.7 %; Mean Corpuscular Hemoglobin 31.3 pg (25.0-34.0); Mean Corpuscular Hgb Conc 34.3 g/dL (32.0-36.0); Mean Corpuscular Volume 91.1 fL (80.0-100.0); Mean Platelet Volume 9.7 fL (9.4-12.4); Monocytes # (auto) 0.41 K/uL (0.11-0.59); Monocytes % (auto) 7.9 %; Neutrophils # (auto) 2.98 K/uL (1.40-6.50); Neutrophils % (auto) 57.6 %; Platelet Count 340 K/uL (130-400); RDW Coefficient of Variation 13.2 % (11.5-14.5); RDW Standard Deviation 44.4 fL (36.4-46.3); Red Blood Count 3.84 M/uL (4.20-5.40); White Blood Count 5.18 K/ul (4.8-10.8)
[2023-07-03 05:35] LABS: Albumin Level 3.6 gm/dl (3.4-5.0); BUN Creatinine Ratio 12.9 (10-20); Calcium 7.5 mg/dl (8.6-10.3); Creatinine Clr Calc Pharmacy 110.7 ml/min; Est GFR (African American) 128.9 ml/min; Est GFR (Non-African American) 111.2 ml/min; Phosphorus 5.3 mg/dl (2.5-4.9); Potassium 4.2 mmol/L (3.5-5.1)
[2023-07-03 06:04] LABS: Appearance Urine Clear (Clear); Bilirubin Urine Negative (Negative); Blood Urine Negative (Negative); Color Urine Yellow; Glucose Urine UA Negative (Negative); Ketones Urine Negative (Negative); Leukocyte Esterase Urine Negative (Negative); Nitrite Urine Negative (Negative); Protein Urine Negative (Negative); Specific Gravity Urine 1.033 (1.000-1.030); Urobilinogen Urine Negative (Negative); pH Urine 5.5 (4.5-7.5)
[2023-07-03 06:30] LABS: Amphetamines+Metham, Urine Pos (Neg); Barbiturates, Urine Neg (Neg); Benzodiazepine, Urine Neg (Neg); Cocaine, Urine Neg (Neg); MDMA (Ecstacy), Urine Neg (Neg); Marijuana, Urine Neg (Neg); Methadone, Urine Neg (Neg); Opiate, Urine Neg (Neg); Phencyclidine, Urine Neg (Neg)
--- NOTE | 2023-07-03 06:51 | XRay Report ---
XR chest 1V portable CLINICAL HISTORY: Chest pain, nonspecific COMPARISON STUDY: No previous studies for comparison. FINDINGS: Lung volumes are normal. Lungs are clear. There is no pneumothorax or pleural effusion. Car diac size is normal. Mediastinal contours are normal. There is no evidence for pulmonary edema. IMPRESSION: No acute cardiopulmonary findings. ACT 112: Negative or not required by law. Electronically signed by: Marcellus Whitmore M.D. 07/03/2023 6:50 AM
--- NOTE | 2023-07-03 07:32 | Hospitalist Progress Note ---
Date of Service July 03, 2023 Assessment & Plan (1) Headache: Plan: Associated with photophobia, transient tingling and numbness Possible migraine Patient currently comfortable. Lack of sleep, anxiety, multiple electrolyte abnormalities (hypokalemia, hypophosphatemia) possibly contributory to symptoms ADHD, mood disorder, stable on current regimen as per patient Medical telemetry NSAID trial if with headache recurrence Replace electrolytes Anxiolytic as needed [facility] prophylaxis. [facility] Full code Text document was generated using [employer] voice recognition software. It may contain grammatical or spelling errors. Kindly contact undersigned for clarification of any documentation item in question. Admission and Anticipated Discharge Date Admission Date: July 03, 2023 Results & Data Results & Data Vital Signs (Past 12 Hours) Vital Signs Temp Pulse Pulse Resp BP Pulse Ox Pulse Ox 07/03/23 07:00 36.9 C 84 20 123/84 96 07/03/23 04:45 82 18 108/65 95 07/03/23 01:05 98 07/02/23 23:58 88 07/02/23 23:00 85 18 132/93 98 07/02/23 21:22 82 18 132/93 98 07/02/23 20:08 83 19 97 07/02/23 19:58 90 19 143/97 H 100 07/02/23 19:57 89 O2 Del Method O2 Del Method 07/03/23 07:00 Room Air 07/03/23 04:45 Room Air 07/03/23 01:05 Room Air 07/02/23 23:58 07/02/23 23:00 Room Air 07/02/23 21:22 Room Air 07/02/23 20:08 Room Air 07/02/23 19:58 Room Air 07/02/23 19:57
[2023-07-03] MEDS: VENLAFAXINE HCL XR 150 MG CAPXR PO SCH (08:40)
[2023-07-03] MEDS: ENOXAPARIN INJ 30 MG/0.3 ML SYR SQ SCH (08:42)
[2023-07-03] MEDS: DEXTROAMPHETAMINE/AMPHETAMINE ER 5 MG CAP PO SCH (08:45)
--- NOTE | 2023-07-03 10:57 | Discharge Summary ---
Discharge Summary Date of Service July 03, 2023 Notes For Next Care Provider Please ensure close monitoring of electrolytes (Phosphorus, Potassium, Magnesium) and replete as needed Please ensure close followup for Hx of panic attacks Medication Changes From Visit None- electrolytes repleted during hospitalization Admission HPI Per Admitting Provider History obtained from patient and records. Medical history significant for ADHD, anxiety/mood disorder, ongoing vape use. Patient is a resident of [place], [place] who arrived in town today to attend graduation of her niece. Patient did not get a lot of sleep last night. Patient was sitting down at her niece's apartment when she experienced sudden onset of headache, dizziness, and body numbness feeling like she is removed from her body. Subsequent light sensitivity. No prior episodes. No chest pain, no SOB, some nausea, no vomiting. No abdominal pain. No unusual stress at home. Patient brought to ER for evaluation. Medical History as above Surgical History : Rectal surgery Family History : Hypertension Personal/Social history : Ongoing vape use, occasional EtOH intake, homemaker Admission Exam Per Admitting Provider GENERAL: Comfortable, wane, pleasant, no respiratory distress SKIN: Normal color, warm HEENT: [place] palpebral conjunctivae, no ptosis, dry buccal mucosa NECK : Supple, no tenderness CHEST : CTA, no tenderness HEART : RRR, no obvious murmurs ABDOMEN: Some distention, nontender EXTREMITIES : No LE swelling/tenderness, no other conspicuous deformities noted NEUROLOGIC : Coherent, no facial asymmetry, no other gross focality Principal Dx & Hospital Course #1 = Principal Diagnosis (1) Headache: Plan Pt is a 42yoF with PMHx significant for ADHD, Panic Disorder, ongoing vape use who presented with [place], numbness and tingling and generalized weakness in the setting of severe hypophosphatemia and noted hypokalemia. Pt denies that she was having a panic attack with hypoventilation at the time her symptoms started. Hypophosphatemia Hypokalemia Pt presented with phosphorus of 1.2, potassium of 3.3 Magnesium was on lower normal end at 1.8 Associated with photophobia, transient tingling and numbness Possible migraine Pt denies that she was having a panic attack with hypoventilation at the time her symptoms started, however also on the differential given her history of panic attacks. Electrolytes were repleted and pt received IV fluids, IV and oral potassium phosphate, and potassium chloride. Her potassium was 4.2 on discharge and phosphorus was 5.3. She noted improvement in her symptoms but noted fatigue still persisted. However, she was very adamant and anxious for discharge as she was [place], visiting the area for a graduation. Please ensure close PCP followup after discharge as well as continue monitoring of her electrolytes. Discharge Exam General: Alert, oriented. No acute distress Skin: No noted rashes or bruises Psych: Appropriate mood and affect Neuro: No gross deficits while laying in bed HEENT: NC/AT Chest: Nontender to palpation. CV: RRR Resp: Breath sounds clear bilaterally, no increased effort of breathing. Abdomen: Soft, nontender, nondistended. Extremities: No edema in lower extremities bilaterally. Updated Medication List Medication Instructions Recorded Confirmed Type dextroamphetamine-amphetamine 5 mg 5 mg PO .DAILY IN AFTERNOON PRN as 07/02/23 07/02/23 History tablet directed dextroamphetamine-amphetamine ER 15 mg PO DAILY 07/02/23 07/02/23 History 15 mg 24hr capsule,extend release gabapentin 300 mg capsule 300 mg PO TID PRN Anxiety 07/02/23 07/02/23 History lumateperone 21 mg capsule 21 mg PO DAILY 07/02/23 07/02/23 History (Caplyta) venlafaxine 150 mg 150 mg PO DAILY 07/02/23 07/02/23 History capsule,extended release 24 hr Hospital Stay Data Consultations 07/02/23 23:07 ED Decision to Admit Stat Diagnostic Imagining Performed 07/02/23 20:08 CT angio head w con Stat CT angio neck with con Stat CT head/brain wo con Stat Chest X-Ray 07/02/23 20:08 XR chest 1V portable CLINICAL HISTORY: Chest pain, nonspecific COMPARISON STUDY: No previous studies for comparison. FINDINGS: Lung volumes are normal. Lungs are clear. There is no pneumothorax or pleural effusion. Cardiac size is normal. Mediastinal contours are normal. There is no evidence for pulmonary edema. IMPRESSION: No acute cardiopulmonary findings. ACT 112: Negative or not required by law. Electronically signed by: Marcellus Whitmore M.D. 07/03/2023 6:[address] 07/02/23 20:08 Exam(s): CT HEAD Without Contrast EXAM: CT Head Without Intravenous Contrast CLINICAL HISTORY: Dizziness. TECHNIQUE: Axial computed tomography images of the head/brain without intravenous contrast. CTDI is 38 mGy and DLP is 546 mGy-cm. Automated exposure control was utilized for the study. A dose lowering technique was utilized adhering to the principles of ALARA. COMPARISON: No relevant prior studies available. FINDINGS: Brain: Unremarkable. No significant white matter disease. No intracranial hemorrhage, mass-effect or midline shift. No abnormal extra axial fluid. No evidence of acute infarct. Ventricles: Unremarkable. No ventriculomegaly. Bones/joints: Unremarkable. No acute fracture. Soft tissues: Unremarkable. Sinuses: Unremarkable as visualized. No acute sinusitis. Mastoid air cells: Unremarkable as visualized. No mastoid effusion. IMPRESSION: No acute intracranial finding. Electronically signed by: Annette Black MD 07/02/23 22:08 PM Head CTA 07/02/23 20:08 Exam(s): CTA HEAD With Contrast IV Amt: 120ml optiray 320 EXAM: CT Angiography Head With Intravenous Contrast CLINICAL HISTORY: Dizzy. TECHNIQUE: Axial computed tomographic angiography images of the head with intravenous contrast. 3D and MIPS images were created and reviewed. CTDI is 16 mGy and DLP is 971 mGy-cm. Automated exposure control was utilized for the study. A dose lowering technique was utilized adhering to the principles of ALARA. MIP reconstructed images were created and reviewed. CONTRAST: Patient received 120ml optiray 320 of IV contrast COMPARISON: No relevant prior studies available. FINDINGS: Right internal carotid artery: No acute findings. Intracranial segment is patent with no significant stenosis. No aneurysm. Right anterior cerebral artery: Unremarkable. No occlusion or significant stenosis. No aneurysm. Right middle cerebral artery: Unremarkable. No occlusion or significant stenosis. No aneurysm. Right posterior cerebral artery: Unremarkable. No occlusion or significant stenosis. No aneurysm. Right vertebral artery: Unremarkable as visualized. Left internal carotid artery: No acute findings. Intracranial segment is patent with no significant stenosis. No aneurysm. Left anterior cerebral artery: Unremarkable. No occlusion or significant stenosis. No aneurysm. Left middle cerebral artery: Unremarkable. No occlusion or significant stenosis. No aneurysm. Left posterior cerebral artery: Unremarkable. No occlusion or significant stenosis. No aneurysm. Left vertebral artery: Unremarkable as visualized. Basilar artery: Unremarkable. No occlusion or significant stenosis. No aneurysm. IMPRESSION: No acute finding of the arteries of the head. Electronically signed by: Annette Black MD 07/02/23 22:04 PM Neck CTA 07/02/23 20:08 Exam(s): CTA NECK With Contrast IV Amt: 120ml optiray 320 EXAM: CT Angiography Neck With Intravenous Contrast CLINICAL HISTORY: Dizziness. TECHNIQUE: Routine carotid CT angiography protocol was performed with intravenous contrast. NASCET criteria using the distal ICAs for comparison were used for evaluation of stenoses. MIPS images were created and reviewed. CTDI is 16 mGy and DLP is 971 mGy-cm. Automated exposure control was utilized for the study. A dose lowering technique was utilized adhering to the principles of ALARA. MIP reconstructed images were created and reviewed. CONTRAST: Patient received 120ml optiray 320 of IV contrast COMPARISON: None. FINDINGS: VASCULATURE: Right common carotid artery: Unremarkable. No occlusion or significant stenosis. No dissection. Right internal carotid artery: Unremarkable. Extracranial segment is patent with no occlusion or significant stenosis. No dissection. Right external carotid artery: Unremarkable. No occlusion. Right vertebral artery: Unremarkable. No occlusion or significant stenosis. No dissection. Left common carotid artery: Unremarkable. No occlusion or significant stenosis. No dissection. Left internal carotid artery: Unremarkable. Extracranial segment is patent with no occlusion or significant stenosis. No dissection. Left external carotid artery: Unremarkable. No occlusion. Left vertebral artery: Unremarkable. No occlusion or significant stenosis. No dissection. NECK: Bones/joints: Unremarkable. No acute fracture. Soft tissues: Unremarkable. Lung apices: Clear. CAROTID STENOSIS REFERENCE USING NASCET CRITERIA: % ICA stenosis = (1 - narrowest ICA diameter/diameter of distal cervical ICA) x 100. Mild - <50% stenosis. Moderate - 50-69% stenosis. Severe - 70-94% stenosis. Near occlusion - 95-99% stenosis. Occluded - 100% stenosis. IMPRESSION: No acute finding of the arteries of the neck. Electronically signed by: Annette Black MD 07/02/23 22:05 PM Discharge Instructions Given to Patient (Per Discharging Provider) Holly, You were admitted with generalized weakness and your phosphate levels were very low. Your potassium level was also low. We replaced those electrolytes for you and you have indicated that you want to go home. Please keep close follow up with your primary care provider after discharge for continued monitoring. Please do not hesitate to come back to the emergency room if your symptoms worsen or return. It was a pleasure taking care of you while you were here. Total Time Total Time Spent Total Time Spent (In Minutes): I spent a total of75 minutes coordinating, documenting, and providing care for this patient excluding time spent in the performance of separately billed services
--- NOTE | 2023-07-03 15:20 | Electrocardiogram Report ---
Test Reason : Blood Pressure : / mmHG Vent. Rate : 082 BPM Atrial Rate : 082 BPM P-R Int : 160 ms QRS Dur : 094 ms QT Int : 396 ms P-R-T Axes : 055 078 058 degrees QTc Int : 462 ms Normal sinus rhythm Nonspecific T wave abnormality No previous ECGs available Confirmed by Haim Bardales ([id number]) on 07/03/2023 3:19:52 PM Referred By: REFERRED SELF Confirmed By:Haim Bardales
[2023-07-05 16:26] LABS: Amphetamine Urine, Confirm 3776 ng/mL (<250); Methamphetamine, Ur Confirm NEGATIVE ng/mL (<250)
== END 2023-07-03 11:16 | disposition home or self-care (01) | DRG 642 ==
LOC: ED 19:22 → INTOOBSV 07-03 00:19 → EDINP 07-03 00:19